=== PATIENT | male | born 1960 | race Caucasian/White ===

== ENCOUNTER 2017-02-26 13:44 | Emergency (ER) | payer OTHER ==
[~2017-02-26] VITALS: Ht 175.3 cm; Wt 105.0 kg
[~2017-02-26 13:44] MED LIST: ALEVE220 MG PO; DIABETIC MEDICATION; ECOTRIN325 MG PO; ENDOCET 5-3251 EACH PO; FLOMAX0.4 MG PO; GABAPENTIN300 MG PO; GLYBURIDE5 MG PO; HYDROCODON-ACE1 EAC7 PO; METFORMIN HCL500 MG PO; NAPROSYN500 MG PO; PERCOCET 10/1 TABLET PO; PERCOCET 5/31 TABLET
[2017-02-26] MEDS ORDERED: KEFLEX500 MG PO (16:26)
[2017-02-26] MEDS ORDERED: PERCOCET 5/31 TABLET PO (16:26)
[2017-02-26 16:44] VITALS: BP 134/71
== END 2017-02-26 16:49 | disposition home or self-care (01) ==
LOC: EME 13:44 → TRA 13:44
PROC: 0HQGXZZ Repair Left Hand Skin, External Approach (ICD-10-PCS; principal; 2017-02-26)
DX: S61.215A Laceration without foreign body of left ring finger without damage to nail, initial encounter (principal); W29.3XXA Contact with powered garden and outdoor hand tools and machinery, initial encounter; E11.9 Type 2 diabetes mellitus without complications; I10 Essential (primary) hypertension; Z87.442 Personal history of urinary calculi; Z79.84 Long term (current) use of oral hypoglycemic drugs; F17.200 Nicotine dependence, unspecified, uncomplicated
CPT/HCPCS: 73140; 99281; 99283; S0020

== ENCOUNTER 2018-02-28 16:18 | Emergency (ER) | payer OTHER ==
[~2018-02-28] VITALS: Ht 175.3 cm; Wt 99.4 kg
[~2018-02-28 16:18] MED LIST changes: +KEFLEX500 MG PO; +PERCOCET 5/31 TABLET PO
[2018-02-28] MEDS ORDERED: NORCO 5/3251 TABLET PO (20:14)
[2018-02-28] MEDS ORDERED: LIDODERM 5% P1 PATCH TD (20:14)
[2018-02-28 20:24] VITALS: BP 128/79
== END 2018-02-28 20:24 | disposition home or self-care (01) ==
LOC: EME 16:18
DX: M54.5 Low back pain (principal); E11.9 Type 2 diabetes mellitus without complications; Z79.84 Long term (current) use of oral hypoglycemic drugs; I10 Essential (primary) hypertension; Z87.442 Personal history of urinary calculi; K21.9 Gastro-esophageal reflux disease without esophagitis; F17.200 Nicotine dependence, unspecified, uncomplicated
CPT/HCPCS: 99281; 99284